=== PATIENT | female | born 1970 | race Caucasian/White ===

== ENCOUNTER 2024-04-29 13:13 | Emergency (ER) | payer BC, OTHER, SELFPAY ==
[2024-04-29 13:17] VITALS: BP 127/73
[2024-04-29] MEDS: TYLENOL 1000 MG PO (13:27)
--- NOTE | 2024-04-29 14:12 | ED.GENMED ---
History of Present Illness
<KRISTIE Lott - Last Filed: 04/29/24 18:35>
General
Chief Complaint: Back Pain
Source: patient
Exam Limitations: none
Time Seen by Provider: 04/29/24 13:49
Nursing documentation reviewed up to this point in time: agreed with
History of Present Illness
History of Present Illness:
Patient is a 52-year-old female who presents to the ER for evaluation. Patient reports she started with pain throughout the night across the middle of her back. She normally does have the back this pain was different. She was not sure if she
injured her back because she was moving things yesterday however she denies any pain with range of motion. This morning she continued with back pain across the middle of her back and then developed chills and bodyaches. She reports pain went to
the lower back and radiate down both of her legs. She felt feverish but her family took her temperature and she did not have a fever at home. She denies any runny nose headache.
She does have history of UTI but denies any urinary frequency urgency or dysuria. She denies any cough shortness of breath. She does mention that she recently started estradiol orally for menopause 6 to 8 weeks ago.
Review of Systems
<KRISTIE Lott - Last Filed: 04/29/24 18:35>
Review of Systems
Allergies reviewed?: Yes
All Other Systems: ROS reviewed and negative except as documented in HPI and ROS
Constitutional: Reports fever and chills
EENT: Reports no symptoms
Respiratory: Denies cough or trouble breathing
Cardiac: Reports no symptoms
ABD/GI: Reports no symptoms
: Reports no symptoms; Denies dysuria or incontinence
Musculoskeletal: Reports back pain
Skin: Reports no symptoms; Denies rash
Neurological: Reports no symptoms
Psychiatric: Reports no symptoms
Phy Exam
<KRISTIE Lott - Last Filed: 04/29/24 18:35>
General Physical Exam
General Presentation: no apparent distress
General age: appears stated age
General Skin: warm and dry
General Habitus: normal
General Mental: alert
General Hydration: appears well hydrated
Cardiovascular Exam
Cardiovascular Exam: regular rate/rhythm, no murmur and normal peripheral pulses
Pulmonary Exam
Pulmonary Exam: lungs clear and no respiratory distress
Neurological Exam
Neurological Exam: alert and oriented x3
Musculoskeletal Exam
Musculoskeletal Exam: full ROM and other (non tender to back, full rom to all extremities )
Skin Exam
Skin Exam: normal color and warm/dry
Psychiatric Exam
Psychiatric Exam: normal mood/affect
Course
<KRISTIE Lott - Last Filed: 04/29/24 18:35>
Orders/Labs/Results
Orders:
Orders
04/29/24 13:25
Acetaminophen [Tylenol] 1,000 mg .ROUTE .STK-MED ONE
04/29/24 13:26
Acetaminophen [Tylenol] 1,000 mg PO NOW STA
04/29/24 14:09
Cardiac Monitoring- Treatment ONCE
IV Insert/Care/Rem.- Treatment PRN
0.9% Sodium Chloride 1000 ml [Nss] 1,000 ml IV BOLUS
Ketorolac [Toradol] 15 mg IV NOW STA
04/29/24 14:33
COVID-19 Antigen Urgent
Source: Nasal Swab
Complete Blood Count/With Diff Urgent
Comprehensive Metabolic Panel Urgent
Lipase Urgent
Urinalysis Reflex To Culture Urgent
Date Specimen was Collected: 04/29/24
Time Specimen was Collected: 14:29
04/29/24 15:08
CT Abd/pel Without Iv Or Oral Urgent
Comment:
Reason For Exam: back pain /fever
CT Chest Pe Study Urgent
Comment:
Reason For Exam: back pain fever on oral hormonal replacement
04/29/24 15:45
Lactic Acid Urgent
Blood Culture Urgent
[place] Source: Blood/Venous
Specimen Description:
Abnormal Lab Results
04/29/24
14:33
WBC 11.1 H 10^3/uL
(4.8-10.8)
MCH 31.9 H pg
(27.0-31.0)
Absolute Neuts (auto) 10.4 H 10^3/uL
(1.4-6.5)
Absolute Lymphs (auto) 0.2 L 10^3/uL
(1.2-3.4)
Neutrophils % 94.2 H %
(42.2-75.2)
Lymphocytes % 1.9 L %
(20.5-51.1)
Glucose 110 H mg/dl
(70-99)
Alkaline Phosphatase 142 H U/L
(38-126)
04/29/24 14:33
04/29/24 14:33
Vital Signs
Initial and Last Documented VS:
Initial Vital Signs
Temp Pulse Resp BP Pulse Ox
101.6 F H 116 18 127/73 96
04/29/24 13:17 04/29/24 13:17 04/29/24 13:17 04/29/24 13:17 04/29/24 13:17
Last Documented Vital Signs
Temp Pulse Resp BP Pulse Ox
98.9 F 85 16 108/89 94
04/29/24 18:04 04/29/24 17:45 04/29/24 17:45 04/29/24 17:01 04/29/24 17:45
Faculty Administrator consulted with Physician
Faculty Administrator consulted with physician?: Yes
Name of Physician Consulted: DR Palacio
<Avinash Palacio, DO - Last Filed: 04/29/24 15:11>
Orders/Labs/Results
Orders:
Orders
04/29/24 13:25
Acetaminophen [Tylenol] 1,000 mg .ROUTE .STK-MED ONE
04/29/24 13:26
Acetaminophen [Tylenol] 1,000 mg PO NOW STA
04/29/24 14:09
Cardiac Monitoring- Treatment ONCE
IV Insert/Care/Rem.- Treatment PRN
0.9% Sodium Chloride 1000 ml [Nss] 1,000 ml IV BOLUS
Ketorolac [Toradol] 15 mg IV NOW STA
04/29/24 14:33
COVID-19 Antigen Urgent
Source: Nasal Swab
Complete Blood Count/With Diff Urgent
Comprehensive Metabolic Panel Urgent
Lipase Urgent
Urinalysis Reflex To Culture Urgent
Date Specimen was Collected: 04/29/24
Time Specimen was Collected: 14:29
04/29/24 15:08
CT Abd/pel Without Iv Or Oral Urgent
Comment:
Reason For Exam: back pain /fever
CT Chest Pe Study Urgent
Comment:
Reason For Exam: back pain fever on oral hormonal replacement
04/29/24 15:45
Lactic Acid Urgent
Blood Culture Urgent
[place] Source: Blood/Venous
Specimen Description:
Abnormal Lab Results
04/29/24
14:33
WBC 11.1 H 10^3/uL
(4.8-10.8)
MCH 31.9 H pg
(27.0-31.0)
Absolute Neuts (auto) 10.4 H 10^3/uL
(1.4-6.5)
Absolute Lymphs (auto) 0.2 L 10^3/uL
(1.2-3.4)
Neutrophils % 94.2 H %
(42.2-75.2)
Lymphocytes % 1.9 L %
(20.5-51.1)
Glucose 110 H mg/dl
(70-99)
Alkaline Phosphatase 142 H U/L
(38-126)
04/29/24 14:33
04/29/24 14:33
Vital Signs
Initial and Last Documented VS:
Initial Vital Signs
Temp Pulse Resp BP Pulse Ox
101.6 F H 116 18 127/73 96
04/29/24 13:17 04/29/24 13:17 04/29/24 13:17 04/29/24 13:17 04/29/24 13:17
Last Documented Vital Signs
Temp Pulse Resp BP Pulse Ox
98.9 F 85 16 108/89 94
04/29/24 18:04 04/29/24 17:45 04/29/24 17:45 04/29/24 17:01 04/29/24 17:45
<KRISTIE Lott - Last Filed: 04/29/24 18:35>
MDM/Problems Addressed
Differential Diagnosis Includes:
Not limited to viral syndrome, pyelonephritis renal colic UTI less likely PE
MDM/Problems Addressed:
Patient is a 53-year-old female who presents to the ER for evaluation. Patient had back pain throughout the night last night and could not sleep it was not made worse or better with movement. Today she woke up and she felt body aches and fever.
Patient presents awake alert no acute distress she denies any shortness of breath but continues to have back pain that the back pain now is mostly all over her back. She recently started estradiol for hormone replacement 6 to 8 weeks ago. She does
not smoke. She does have a history of UTI however denies any UTI symptoms. She denies abdominal pain. With body aches and fevers COVID was checked and negative with fever and back pain and high risk for PE on estradiol will order CT PE study. In
addition with fever back pain history of UTI will order CAT scan to ensure no renal stone.
1830: Patient feeling better no acute distress looking well. CT chest negative for PE. 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
bone and mass in the region of the left adrenal gland was reviewed with patient I did review the importance of outpatient follow-up. She has to stay well-hydrated Motrin Tylenol for fever chills body aches and return if any worsening of symptoms.
Pt eval by ED physician who agrees with assessment and plan.
<KRISTIE Lott - Last Filed: 04/29/24 18:35>
*Radiology
Radiology exam reviewed: radiology read reviewed
*Pulse Oximetry
Patient hypoxic: no
*Critical Care Note
Total Time (30-74mins, 75-104mins- exclusive of procedures): Not Applicable
ED Attending Note
<KRISTIE Lott - Last Filed: 04/29/24 18:35>
-
Portions of this chart may have been created with voice recognition software.� Occasional wrong word or��sound alike� substitutions may have occurred due to the inherent limitations of voice recognition software.
<Avinash Palacio DO - Last Filed: 04/29/24 15:11>
ED Attending Note
Patient seen and examined by attending physician: Yes
I performed the substantive portion of visit, reviewed & personally made and approve the management plan that is documented in note by myself or EVERARDO.: Yes
I performed a history and physical exam of patient and discussed management with resident, I reviewed resident's note and agree with documented findings and plan of care.: Yes
ED Attending Note:
I evaluated the patient at bedside. The patient is fairly well-appearing but is tachycardic with back discomfort and recently started estrogen therapy. Will obtain CTA. Tylenol was given for the fever/tachycardia.
Discharge Plan
Departure
Patient Disposition: Home (Routine Discharge)
Date of Disposition: 04/29/24
Time of Disposition: 18:32
Patient with high blood pressure during this ER visit?: No
Condition: Fair
Covid-19: Not Applicable
Discharge Problem:
Fever, Acute viral syndrome
Instructions: Fever, Adult (DC), Viral [place] ED
Referrals:
UNKNOWN - PT DOES,NOT KNOW [Family Provider] -
Activity Restrictions/Additional Instructions:
As discussed stay well-hydrated increase fluids. You may also alternate between ibuprofen and Tylenol for fevers body aches. Follow-up with your family doctor as discussed for reevaluation .return if any worsening of symptoms. Please review and
follow-up with your family doctor for additional l CAT scan findings.
Interventions
Interventions:
*Risk Screen - Suicide Last Done: 04/29/24 14:18
*General Assessment Last Done: 04/29/24 14:18
*Neglect/Abuse Screening Last Done: 04/29/24 14:18
ED- Fall Risk Assessment Last Done: 04/29/24 14:28
*ED COVID-19 Vaccine History Last Done: 04/29/24 14:28
ED-Musculoskeletal Assessment Last Done: 04/29/24 14:18
Discharge Date and Time
Print Language: GERMAN
[2024-04-29 14:18] VITALS: BMI 25.7
[2024-04-29 14:22] VITALS: BP 127/61
[2024-04-29] MEDS: TORADOL 15 MG IV (14:29)
[2024-04-29] MEDS: NSS 1000 IV (14:30)
[2024-04-29 14:47] LABS: % Basophils 0.3 % (0-2); % Eosinophils 0.2 % (0-6); % Immature Granulocytes 0.3 % (0-0.5); % Lymphocytes 1.9 % (20.5-51.1); % Monocytes 3.1 % (1.7-9.3); % Neutrophils 94.2 % (42.2-75.2); Absolute Lymphocytes 0.2 10^3/uL (1.2-3.4); Absolute Monocytes 0.3 10^3/uL (0.1-0.6); Absolute Neutrophils 10.4 10^3/uL (1.4-6.5); Hematocrit 40.3 % (37.0-47.0); Hemoglobin 14.2 g/dL (12.0-16.0); Mean Corp Hgb Conc. 35.2 g/dL (33.0-37.0); Mean Corpuscular Hgb 31.9 pg (27.0-31.0); Mean Corpuscular Volume 90.6 fL (81.0-99.0); Mean Platelet Volume 9.7 fL (7.4-10.4); Nucleated Red Blood Cells % 0 %; Platelet Count 160 10^3/uL (130-400); Red Blood Cell Count 4.45 10^6/uL (4.20-5.40); Red Cell Dist. Width 12.2 % (11.5-14.5); White Blood Cell Count 11.1 10^3/uL (4.8-10.8)
[2024-04-29 14:55] LABS: Urine Albumin Negative (Neg - Trace); Urine Bilirubin Negative (Negative); Urine Character Clear (Clear); Urine Color Yellow; Urine Glucose Negative (Negative); Urine Ketone Negative (Negative); Urine Leukocyte Negative (Negative); Urine Nitrite Negative (Negative); Urine Occult Blood Negative (Negative); Urine Specific Gravity 1.015 (<1.030); Urine Urobilinogen Negative (Neg - 1+)
[2024-04-29 15:00] VITALS: BP 91/73
[2024-04-29 15:02] LABS: COVID-19 Antigen Negative (Negative)
[2024-04-29 15:06] LABS: ALT (SGPT) 26 U/L (0-35); AST (SGOT) 29 U/L (14-36); Albumin 4.2 g/dl (3.5-5.0); Alkaline Phosphatase 142 U/L (38-126); Blood Urea Nitrogen 15 mg/dl (7-17); Calcium 9.4 mg/dl (8.4-10.2); Carbon Dioxide 22 mmol/L (22-30); Chloride 105 mmol/L (98-107); Estimated Creatinine Clearance 70 ml/min; Glucose 110 mg/dl (70-99); Lipase 265 U/L (23-300); Potassium 3.8 mmol/L (3.5-5.1); Sodium 137 mmol/L (135-145); Total Protein 6.7 g/dl (6.3-8.2); eGFR > 60.00
[2024-04-29 16:05] VITALS: BP 103/66
[2024-04-29 17:01] VITALS: BP 108/89
[2024-04-29 19:04] VITALS: BP 100/69
--- NOTE | 2024-04-29 19:04 | EDRN ---
Reviewed discharge instructions with patient. Verbalized understanding.
== END 2024-04-29 19:07 | disposition home or self-care (01) ==
LOC: EMR 13:13
PROVIDERS: Nurse Practitioner; EMERGENCY PHYSICIAN Emergency Medicine
DX: B34.9 Viral infection, unspecified (principal); R50.9 Fever, unspecified; M54.6 Pain in thoracic spine; M54.50 Low back pain, unspecified; M79.605 Pain in left leg; M79.604 Pain in right leg; R00.0 Tachycardia, unspecified; Z11.52 Encounter for screening for COVID-19; D16.8 Benign neoplasm of pelvic bones, sacrum and coccyx; E03.9 Hypothyroidism, unspecified; Z79.890 Hormone replacement therapy; Z87.440 Personal history of urinary (tract) infections; Z91.018 Allergy to other foods; Z91.010 Allergy to peanuts
CPT/HCPCS: 99285; 96361; 96374; 71275; 74176; 80053; 81003; 83605; 83690; 85025; 87040; 87811; Q9967